=== PATIENT | female | born 1965 | race Caucasian/White ===

== ENCOUNTER 2018-08-12 09:04 | Inpatient (IN) | END 2018-08-13 13:45 | disposition home or self-care (01) | DRG 247 ==

== ENCOUNTER 2018-08-13 20:41 | Inpatient (IN) | END 2018-08-14 17:00 | disposition home or self-care (01) | DRG 313 ==

== ENCOUNTER 2018-08-16 20:30 | Observation (INO) | END 2018-08-17 15:45 | disposition home or self-care (01) ==

== ENCOUNTER 2018-12-23 19:08 | Emergency (ER) | payer MEDICAID, OTHER ==
[~2018-12-23] VITALS: Ht 160 cm; Wt 84.0 kg
[~2018-12-23 19:08] MED LIST: ACET500T98 PO; AMLO5TAB4 PO; ASPI-903 PO; ATOR40TA68 PO; LOSA25TA2 PO; RANI75TA13 PO; TICA90TA PO
[2018-12-23 19:14] VITALS: Ht 160 cm; Wt 84.0 kg
--- NOTE | 2018-12-23 19:37 | ERD ---
ER Documentation Chief Complaint Chief Complaint left side cp off & on x3 days. worse today. +SOB hx stent 3 mo ago. HPI 53-year-old woman complaining of left-sided chest pain intermittently times 3 days, she states the pain is similar to multiple previous episodes in the past and occurs for most of the day without any obvious precipitating or alleviating factors. She has intermittent shortness of breath and palpitations as well but denies S OB in the ER. Patient denies cough, no fevers or chills, no calf or leg swelling. She had stent placed 3 months ago. ROS All systems reviewed and are negative except as per history of present illness. Medications Home Meds Active Scripts Diclofenac Sodium* (Voltaren* Gel) 1% -100 Gm Gel, 2 GM TOP TID PRN for PAIN, #1 TUB Prov:KEREN ALARCON MD 12/23/18 Reported Medications Losartan Potassium* (Cozaar*) 25 Mg Tablet, 25 MG PO DAILY, #30 TAB 08/13/18 Aspirin* (Aspirin* Chew) 81 Mg Tab.chew, 81 MG PO DAILY, TAB.CHEW 08/13/18 Ranitidine Hcl* (Zantac*) 75 Mg Tablet, 75 MG PO BID, TAB 08/13/18 Atorvastatin* (Atorvastatin*) 40 Mg Tablet, 40 MG PO QHS, #30 TAB 08/13/18 Ticagrelor* (Brilinta*) 90 Mg Tablet, 90 MG PO Q12, TAB 08/13/18 Acetaminophen (Tylenol) 500 Mg Tab, 500 MG PO PRN for PAIN, TAB 08/10/18 Amlodipine Besylate* (Norvasc*) 5 Mg Tablet, 5 MG PO DAILY, TAB 08/09/18 Allergies Allergies: Coded Allergies: No Known Allergies (Verified Allergy, Unknown, 08/16/18) PMhx/Soc CAD history of RCA lesion status post stenting, anemia, hypertension, osteoarthritis, anxiety, obstructive sleep apnea, GERD History of Surgery: Yes Anesthesia Reaction: No Hx Neurological Disorder: No Hx Respiratory Disorders: No Hx Cardiac Disorders: Yes (stent placed) Hx Psychiatric Problems: No Hx Miscellaneous Medical Probl: No Hx Alcohol Use: No Hx Substance Use: No Hx Tobacco Use: No FmHx Family History: No diabetes Physical Exam Vitals Vital Signs Date Temp Pulse Resp B/P (MAP) Pulse Ox O2 O2 Flow FiO2 Time Delivery Rate 12/23/18 72 16 133/82 98 Room Air 21:50 (99) 12/23/18 98.4 65 20 153/84 97 19:35 (107) 12/23/18 98.4 77 20 174/78 97 19:14 (110) Physical Exam Const: No acute distress, appears comfortable, afebrile Head: Atraumatic Eyes: Normal Conjunctiva ENT: Normal External Ears, Nose and Mouth. Neck: Full range of motion. No meningismus. Resp: Clear to auscultation bilaterally Cardio: Regular rate and rhythm, no murmurs Abd: Soft, non tender, non distended. Normal bowel sounds Skin: No petechiae or rashes Back: No midline or flank tenderness Ext: No cyanosis, or edema Neur: Awake and alert Psych: Normal Mood and Affect Result Diagram: 12/23/18200612/23/182005 Results 24 hrs Laboratory Tests Test 12/23/18 20:06 12/23/18 20:07 Sodium Level 144 mmol/L Potassium Level 3.8 mmol/L Chloride Level 108 mmol/L Carbon Dioxide Level 24 mmol/L Anion Gap 12 Blood Urea Nitrogen 14 mg/dl Creatinine 0.63 mg/dl Est Glomerular Filtrat Rate mL/min > 60 mL/min Glucose Level 98 mg/dl Calcium Level 9.7 mg/dl Total Bilirubin 0.2 mg/dl Direct Bilirubin 0.00 mg/dl Indirect Bilirubin 0.2 mg/dl Aspartate Amino Transf (AST/SGOT) 56 IU/L Alanine Aminotransferase (ALT/SGPT) 98 IU/L Alkaline Phosphatase 72 IU/L Troponin I < 0.012 ng/ml Total Protein 8.0 g/dl Albumin 4.6 g/dl Globulin 3.40 g/dl Albumin/Globulin Ratio 1.35 Lipase 134 U/L White Blood Count 5.2 10^3/ul Red Blood Count 3.95 10^6/ul Hemoglobin 11.9 g/dl Hematocrit 36.1 % Mean Corpuscular Volume 91.4 fl Mean Corpuscular Hemoglobin 30.1 pg Mean Corpuscular Hemoglobin Concent 33.0 g/dl Red Cell Distribution Width 13.2 % Platelet Count 244 10^3/UL Mean Platelet Volume 9.4 fl Immature Granulocytes % 0.200 % Neutrophils % 54.3 % Lymphocytes % 33.8 % Monocytes % 9.9 % Eosinophils % 1.2 % Basophils % 0.6 % Nucleated Red Blood Cells % 0.0 /100WBC Immature Granulocytes # 0.010 10^3/ul Neutrophils # 2.8 10^3/ul Lymphocytes # 1.8 10^3/ul Monocytes # 0.5 10^3/ul Eosinophils # 0.1 10^3/ul Basophils # 0.0 10^3/ul Nucleated Red Blood Cells # 0.0 10^3/ul Current Medications Medications Dose Sig/Michel Start Time Status Last (Trade) Ordered Route PRN Stop Time Admin Dose Reason Admin Sodium 1,000 ml @ Q1H STAT 12/23/18 DC 12/23/18 Chloride 1,000 mls/hr IV 19:39 12/23/18 20:25 20:38 Ketorolac 15 mg ONCE STAT 12/23/18 DC 12/23/18 Tromethamine IV 19:39 12/23/18 20:25 (Toradol) 19:41 Alprazolam 0.5 mg ONCE ONCE 12/23/18 DC 12/23/18 (Xanax) PO 20:00 12/23/18 20:25 20:01 Procedures/MDM IV line was established patient was placed on campus monitor rhythm strip revealed a sinus rhythm at about 70 bpm with upright P and T waves. Patient was afebrile EKG performed, read by me revealed a normal sinus rhythm at 66 bpm, normal axis, narrow QRS complex, no concerning ST elevations or depressions noted. Chest X-ray 1V Interpreted by me: Soft Tissue: No acute abnormalities Bones: No acute abnormalities Mediastinum/Cardiac Silhouette/Lungs: No acute abnormalities I administered Toradol 15 mg IV x1 and alprazolam 0.5 mg p.o. CBC and electrolytes were normal, liver function tests were normal, troponin was negative. Differential diagnoses considered, included but not limited to acute coronary syndrome, pulmonary embolism, aortic dissection, abdominal aortic aneurysm, sepsis, stroke, meningitis, encephalitis, pneumonia, appendicitis, cholecystitis, bowel obstruction, pyelonephritis, nephrolithiasis, cystitis, as well as metabolic, hematologic, and electrolyte abnormalities. As well as abscess, cellulitis, fractures, and dislocations. Patient feels much better at this time, and vital signs are normal, symptoms have improved. I did give strict instructions to return to the ED if symptoms continue or worsen, patient will otherwise follow-up with primary care physician. Patient understood instructions and agreed to plan. Disclaimer: Inadvertent spelling and grammatical errors are likely due to EHR/dictation software use and do not reflect on the overall quality of patient care. Also, please note that the electronic time recorded on this note does not necessarily reflect the actual time of the patient encounter. Departure Diagnosis: Primary Impression: Chest pain Chest pain type: unspecified Qualified Codes: R07.9 - Chest pain, unspecified Condition: KEREN Leach MD Dec 23, 2018 19:37
[2018-12-23] MEDS ORDERED: KETOROLAC 15 MG INJ IV STA (19:39)
[2018-12-23] MEDS ORDERED: SOD CHLORIDE 0.9% 1,000 ML IV STA (19:39)
[2018-12-23] MEDS ORDERED: ALPRAZOLAM 0.25 MG TAB PO ONE (20:00)
[2018-12-23] MEDS ORDERED: DICL100G37 TOP (21:24)
[2018-12-23 21:50] VITALS: BP 133/82; PULSE 72; RESP 16
== END 2018-12-23 21:51 | disposition home or self-care (01) ==
LOC: E/R 19:08
DX: R07.9 Chest pain, unspecified (principal); I25.10 Atherosclerotic heart disease of native coronary artery without angina pectoris; I10 Essential (primary) hypertension; Z79.82 Long term (current) use of aspirin; Z98.61 Coronary angioplasty status
CPT/HCPCS: 36415; 71045; 80053; 83690; 84484; 85025; 93005; 96374; J1885; J7030; Z7502; Z7610

== ENCOUNTER 2019-02-04 20:29 | Inpatient (IN) | payer OTHER ==
[~2019-02-04] VITALS: Ht 160 cm; Wt 86.1 kg
[~2019-02-04 20:29] MED LIST changes: +DICL100G37 TOP
[2019-02-04] MEDS ORDERED: NITROGLYCERIN 2% 1 GM OINT PKT TD STA (21:46)
[2019-02-04] MEDS ORDERED: ONDANSETRON 4 MG INJ IV STA (21:46)
[2019-02-04] MEDS ORDERED: morphine 4 MG/ML VIAL IV STA (21:46)
--- NOTE | 2019-02-04 22:12 | ERD ---
ER Documentation Chief Complaint Chief Complaint on and off chest pain x 1 day, worse x 1 hour HPI 53-year-old female history of coronary disease with a stent to the RCA in August 2018 who presents to the emergency room with chest pain. The patient is having intermittent chest pain since the stent. She describes exertional left-sided chest discomfort that is mild to moderate at this time. The patient took aspirin and nitroglycerin prior to arrival with mildly improved symptoms. Pain is 2 out of 10 currently. Patient denies any fevers chills or cough, no pleuritic pain, no significant anxiety. ROS All systems reviewed and are negative except as per history of present illness. Medications Home Meds Active Scripts Diclofenac Sodium* (Voltaren* Gel) 1% -100 Gm Gel, 2 GM TOP TID PRN for PAIN, #1 TUB Prov:KEREN ALARCON MD 12/23/18 Reported Medications Losartan Potassium* (Cozaar*) 25 Mg Tablet, 25 MG PO DAILY, #30 TAB 08/13/18 Aspirin* (Aspirin* Chew) 81 Mg Tab.chew, 81 MG PO DAILY, TAB.CHEW 08/13/18 Ranitidine Hcl* (Zantac*) 75 Mg Tablet, 75 MG PO BID, TAB 08/13/18 Atorvastatin* (Atorvastatin*) 40 Mg Tablet, 40 MG PO QHS, #30 TAB 08/13/18 Ticagrelor* (Brilinta*) 90 Mg Tablet, 90 MG PO Q12, TAB 08/13/18 Acetaminophen (Tylenol) 500 Mg Tab, 500 MG PO PRN for PAIN, TAB 08/10/18 Amlodipine Besylate* (Norvasc*) 5 Mg Tablet, 5 MG PO DAILY, TAB 08/09/18 Allergies Allergies: Coded Allergies: No Known Allergies (Verified Allergy, Unknown, 08/16/18) PMhx/Soc History of Surgery: Yes Anesthesia Reaction: No Hx Neurological Disorder: No Hx Respiratory Disorders: No Hx Cardiac Disorders: Yes (stent placed) Hx Psychiatric Problems: No Hx Miscellaneous Medical Probl: No Hx Alcohol Use: No Hx Substance Use: No Hx Tobacco Use: No Smoking Status: Never smoker FmHx Family History: No diabetes Physical Exam Vitals Vital Signs Date Temp Pulse Resp B/P (MAP) Pulse Ox O2 O2 Flow FiO2 Time Delivery Rate 02/04/19 60 12 145/77 98 Room Air 22:30 (99) 02/04/19 60 12 160/86 100 Room Air 22:00 (110) 02/04/19 98.5 81 18 187/85 98 20:41 (119) Physical Exam General: Well developed, well nourished, no acute distress Head: Normocephalic, atraumatic. Eyes: Pupils equally reactive, EOM intact ENT: Moist mucous membranes Neck: Supple, no lymphadenopathy Respiratory: Lungs clear bilaterally, no distress Cardiovascular: RRR, no murmurs, rubs, or gallops Abdominal: Soft, non-tender, non-distended, no peritoneal signs : Deferred MSK: No edema, no unilateral swelling, 5/5 strength Neurologic: Alert and oriented, moving all extremities, normal speech, no focal weakness, no cerebellar signs Skin: No rash Psych: Normal mood Result Diagram: 02/04/19220002/04/192200 Results 24 hrs Laboratory Tests Test 02/04/19 22:01 White Blood Count 4.9 10^3/ul Red Blood Count 3.93 10^6/ul Hemoglobin 11.6 g/dl Hematocrit 35.7 % Mean Corpuscular Volume 90.8 fl Mean Corpuscular Hemoglobin 29.5 pg Mean Corpuscular Hemoglobin Concent 32.5 g/dl Red Cell Distribution Width 13.1 % Platelet Count 289 10^3/UL Mean Platelet Volume 8.9 fl Immature Granulocytes % 0.200 % Neutrophils % 49.2 % Lymphocytes % 39.7 % Monocytes % 8.7 % Eosinophils % 1.8 % Basophils % 0.4 % Nucleated Red Blood Cells % 0.0 /100WBC Immature Granulocytes # 0.010 10^3/ul Neutrophils # 2.4 10^3/ul Lymphocytes # 2.0 10^3/ul Monocytes # 0.4 10^3/ul Eosinophils # 0.1 10^3/ul Basophils # 0.0 10^3/ul Nucleated Red Blood Cells # 0.0 10^3/ul Sodium Level 142 mmol/L Potassium Level 3.7 mmol/L Chloride Level 104 mmol/L Carbon Dioxide Level 25 mmol/L Anion Gap 13 Blood Urea Nitrogen 13 mg/dl Creatinine 0.64 mg/dl Est Glomerular Filtrat Rate mL/min > 60 mL/min Glucose Level 103 mg/dl Calcium Level 10.1 mg/dl Troponin I < 0.012 ng/ml Current Medications Medications Dose Sig/Michel Start Time Status Last (Trade) Ordered Route PRN Stop Time Admin Dose Reason Admin 1 inch ONCE STAT 02/04/19 DC 02/04/19 Nitroglycerin TD 21:46 22:16 02/04/19 21:47 (Nitroglyceri n 2% Oint) Morphine 4 mg ONCE STAT 02/04/19 DC 02/04/19 Sulfate IV 21:46 22:15 (morphine) 02/04/19 21:47 Ondansetron 4 mg ONCE STAT 02/04/19 DC 02/04/19 HCl (Zofran IV 21:46 22:15 Inj) 02/04/19 21:47 Procedures/MDM EKG, MONITORS, & DIAGNOSTIC IMAGING: EKG: I reviewed and interpreted a 12-lead EKG. Rhythm: Normal sinus rhythm ST Changes: No contiguous ST segment elevations T waves: No contiguous T wave inversions Impression: [No evidence of acute cardiac ischemia] Repeat EKG: EKG: I reviewed and interpreted a 12-lead EKG. Rhythm: Normal sinus rhythm ST Changes: No contiguous ST segment elevations T waves: No contiguous T wave inversions Impression: [No evidence of acute cardiac ischemia] Chest x-ray: I reviewed and interpreted a 1 view of the chest Mediastinum: No enlargement Cardiac silhouette: No cardiomegaly Airspace: Clear lung groves bilaterally without evidence of pneumothorax Bones: No evidence of fracture PROCEDURES: [None] LAB INTERPRETATION: * Negative troponin MEDICAL DECISION MAKING: The patient's history, physical exam and clinical presentation is concerning for possible cardiogenic etiology and acute coronary syndrome. Based on the patient's clinical exam and history and risk factors, I have a much lower clinical concern for pulmonary embolism, acute aortic dissection, pneumothorax, pneumonia, cardiac tamponade HEART Score: Greater than 4 MACE Rate: 16.6% Shared Decision Making: We had a conversation regarding risk stratification, MACE rate, and the risks, benefits, alternatives of disposition planning op tions. Disposition planning: Admit ER COURSE: * Nitro morphine provided * Dr. Pinon notified * Troponin negative. Patient stable CONSULTATION: Cardiology as above DISPOSITION PLAN: Telemetry admission for management of chest pain to rule out acute coronary syndrome, serial enzymes, risk stratification and consideration of provocative testing CONSULTATION: Accepting care team and consultations: I discussed the current laboratory data, diagnostic imaging and emergency care provided. Admitting team: Dr. Mcclain Admitting team indication: Insurance directed Departure Diagnosis: Primary Impression: Chest pain Chest pain type: unspecified Qualified Codes: R07.9 - Chest pain, unspecified Condition: Stable PÉREZ GAYLE MD Feb 04, 2019 22:12
[2019-02-05] VITALS (11 sets, daily range): BP systolic 106–144; BP diastolic 6–76; PULSE 53–73; RESP 18–20; Ht 160 cm; Wt 86.1 kg
[2019-02-05] MEDS ORDERED: ONDANSETRON 4 MG TAB PO PRN (00:30)
[2019-02-05] MEDS ORDERED: ONDANSETRON 4 MG INJ IV PRN (00:30)
[2019-02-05] MEDS ORDERED: morphine 2 MG INJ IV PRN (00:30)
[2019-02-05] MEDS ORDERED: BISACODYL (EC) 5 MG TAB PO PRN (00:30)
[2019-02-05] MEDS ORDERED: MAGNESIUM HYDROXIDE 30ML CUP PO PRN (00:30)
[2019-02-05] MEDS ORDERED: NACL 0.9% 3 ML SYG IV SCH (00:30)
[2019-02-05] MEDS ORDERED: ACETAMINOPHEN 325 MG TAB PO PRN ×2 (00:30)
[2019-02-05] MEDS ORDERED: DOCUSATE SODIUM 100 MG CAP PO PRN (00:30)
[2019-02-05] MEDS: FAMOTIDINE 20 MG TAB PO SCH ×2 (08:33→20:50)
[2019-02-05] MEDS: TICAGRELOR 90 MG TABLET PO SCH ×2 (08:37→21:08)
--- NOTE | 2019-02-05 08:50 | HP ---
Date/Time of Note Date/Time of Note DATE: 02/05/19 TIME: 08:39 Assessment/Plan VTE Prophylaxis SCD applied (from Nsg): Yes Pharmacological prophylaxis: LMWH Lines/Catheters IV Catheter Type (from Nrsg): Saline Lock Urinary Cath still in place: No Assessment/Plan Assessment/Plan [facility] 53yo woman with known coronary disease who has had chronic chest pain and left arm pain for the past six months, with occasional dyspnea. She had high blood pressure yesterday, which made her anxious. No clear new ischemia-type symptoms. On exam, she had moderate costochondritis. Palpation of the chest wall reproduced her pain. She also has mild restriction of motion with pain in the left arm that may be secondary to mild arthritis or rotator cuff tendonitis. EKG showed normal sinus rhythm rate of 70, with some T-wave flattening but no acute ischemic changes. Troponins negative x 2. I don't believe she has active cardiac ischemia. Blood pressure now better-controlled. Normal-range D-dimer, with normal ESR and no calf swelling or tenderness, so pulmonary embolism is very unlikely. * Will obtain Lexiscan, in advance of planned outpatient stress testing next month * Her police inspector is aware * Naproxen for chest pain; discontinue morphine * Lovenox for DVT prophylaxis; famotidine for GI protection * Disposition: home once stress test results are back, if reassuring; or further intervention anticipated for an abnormal result Wilfredo Johns MD PhD [phone] Result Diagram: 02/04/19 2201 02/05/19 0413 Results 24hrs Laboratory Tests Test 02/04/19 22:01 02/05/19 04:13 White Blood Count 4.9 Red Blood Count 3.93 L Hemoglobin 11.6 L Hematocrit 35.7 L Mean Corpuscular Volume 90.8 Mean Corpuscular Hemoglobin 29.5 Mean Corpuscular Hemoglobin Concent 32.5 Red Cell Distribution Width 13.1 Platelet Count 289 Mean Platelet Volume 8.9 Immature Granulocytes % 0.200 Neutrophils % 49.2 Lymphocytes % 39.7 Monocytes % 8.7 Eosinophils % 1.8 Basophils % 0.4 Nucleated Red Blood Cells % 0.0 Immature Granulocytes # 0.010 Neutrophils # 2.4 Lymphocytes # 2.0 Monocytes # 0.4 Eosinophils # 0.1 Basophils # 0.0 Nucleated Red Blood Cells # 0.0 Sodium Level 142 143 Potassium Level 3.7 3.7 Chloride Level 104 105 Carbon Dioxide Level 25 26 Anion Gap 13 12 Blood Urea Nitrogen 13 14 Creatinine 0.64 0.71 Est Glomerular Filtrat Rate mL/min > 60 > 60 Glucose Level 103 98 Calcium Level 10.1 9.5 Troponin I < 0.012 < 0.012 Erythrocyte Sedimentation Rate 30 D-Dimer 324.89 # D-Dimer Comment Hemoglobin A1c 5.8 Creatine Kinase 109 Creatine Kinase Index 0.6 Creatinine Kinase MB (Mass) 0.68 Triglycerides Level 151 H Cholesterol Level 222 H LDL Cholesterol, Calculated 151 HDL Cholesterol 41 Cholesterol/HDL Ratio 5.4 Thyroid Stimulating Hormone (TSH) 7.350 H HPI/ROS Admit Date/Time Admit Date/Time Feb 05, 2019 at 00:26 Hx of Present Illness Ms. Reed is a 53yo woman with a history of coronary artery disease who has not felt well for the past six months since undergoing cardiac catheterization. She said she has chronic chest pain with dyspnea and radiation into the left arm on-and-off most days. Yesterday she said her blood pressure was much higher than usual, and she was very anxious. She felt unusually dizzy, in addition to her normal chest pain and dyspnea. She is from [facility] originally, and lives with her -- who is overweight with hypertension himself. They have two children and several grandchildren. ROS She denied headache, visual problems, cough or flu symptoms, nausea, change in bowel habitus, dysuria or urethritis symptoms. PMH/Family/Social Past Medical History Medications Current Medications Amlodipine Besylate (Norvasc) 5 mg DAILY PO Last administered on 02/05/19at 08:34; Admin Dose 5 MG; Start 02/05/19 at 09:00 Aspirin (Aspirin) 81 mg DAILY PO Last administered on 02/05/19at 08:34; Admin Dose 81 MG; Start 02/05/19 at 09:00 Atorvastatin Calcium (Lipitor) 40 mg QHS PO ; Start 02/05/19 at 21:00 Losartan Potassium (Cozaar) 25 mg DAILY PO Last administered on 02/05/19at 08: 34; Admin Dose 25 MG; Start 02/05/19 at 09:00 Ticagrelor (Brilinta) 90 mg Q12 PO Last administered on 02/05/19at 08:37; Admin Dose 90 MG; Start 02/05/19 at 09:00 IV Flush (NS 3 ml) 3 ml PER PROTOCOL IV ; Start 02/05/19 at 00:30 Ondansetron HCl (Zofran Tab) 4 mg Q6H PRN PO NAUSEA/VOMITING; Start 02/05/19 at 00:30 Acetaminophen (Tylenol Tab) 650 mg Q6H PRN PO .PAIN 1-3 OR TEMP; Start 02/05/19 at 00:30 Morphine Sulfate (morphine) 2 mg Q4H PRN IV .PAIN 7-10; Start 02/05/19 at 00:30 Docusate Sodium (Colace) 100 mg Q12H PRN PO .CONSTIPATION; Start 02/05/19 at 00:30 Magnesium Hydroxide (Milk Of Mag) 30 ml DAILY PRN PO .CONSTIPATION; Start 02/05/19 at 00:30 Bisacodyl (Dulcolax) 5 mg DAILY PRN PO .CONSTIPATION; Start 02/05/19 at 00:30 Famotidine (Pepcid) 20 mg Q12 PO Last administered on 02/05/19at 08:33; Admin Dose 20 MG; Start 02/05/19 at 09:00 Enoxaparin Sodium (Lovenox) 40 mg DAILY SC ; Start 02/05/19 at 09:00 Ondansetron HCl (Zofran Inj) 4 mg ER BRIDGE PRN IV NAUSEA/VOMITING; Start 02/05/19 at 00:30; Stop 02/06/19 at 00:29 Acetaminophen (Tylenol Tab) 650 mg ER BRIDGE PRN PO .MILD PAIN 1-3 OR TEMP; Start 02/05/19 at 00:30; Stop 02/06/19 at 00:29 Coded Allergies: No Known Allergies (Verified Allergy, Unknown, 08/16/18) Past Surgical History Past Surgical Hx: appendectomy, other Family History Significant Family History: hypertension, other Social History Smoking Status: Never smoker Exam/Review of Systems Vital Signs Vitals Vital Signs Date Temp Pulse Resp B/P (MAP) Pulse Ox O2 O2 Flow FiO2 Time Delivery Rate 02/05/19 58 08:01 02/05/19 98.4 18 135/63 98 07:54 (87) 02/05/19 Nasal 2.0 02:00 Cannula Intake and Output 02/04/19 02/04/19 02/05/19 1414:59 22:59 06:59 IntakeIntake Total 50 ml BalanceBalance 50 ml Exam Exam GEN; Mildly anxious-appearing, but breathing comfortably on room air HEENT: Pupils ERRL, EOMI, no conjunctivitis or scleral icterus CVS: Regular rhythm, normal rate, no murmur, good peripheral perfusion Chest: Moderate diffuse chest wall tenderness that she said reproduced her pain. No squeeze tenderness Abd: Soft, non-tender, no rebound or guarding, no HSM MSk: Mild discomfort with full rotation and elevation of the left shoulder, but not the right. Previous knee replacement surgery on the right. Moderate crepitus of the left knee. Neuro: Alert, oriented, cranial nerves intact, motor 5/5 bilat. Intact speech and memory. Normal affect. Skin: No rash HUGO JOHNS M.D. Feb 05, 2019 08:50
[2019-02-05] MEDS ORDERED: ASPIRIN 81 MG TAB PO SCH (09:00)
[2019-02-05] MEDS ORDERED: LOSARTAN 25 MG TAB PO SCH (09:00)
[2019-02-05] MEDS ORDERED: ENOXAPARIN 40 MG/0.4 ML SYG SC SCH (09:00)
[2019-02-05] MEDS ORDERED: AMLODIPINE 5 MG TAB PO SCH (09:00)
--- NOTE | 2019-02-05 15:27 | CONS ---
Assessment/Plan Assessment/Plan Hospital Course (Demo Recall) Assessment: Noncardiac chest pain - symptoms suggest possible radiculopathy and tenderness to palpation on exam suggests musculoskeletal as another possible etiology Coronary artery disease - status post PCI to obtuse marginal 08/12/2018 without residual obstructive disease Hypertension Dyslipidemia Recommendations: -defer repeating additional cardiac tests at this time -continue aspirin 81mg daily and ticagrelor 90mg BID -continue atorvastatin 40mg daily -continue amlodipine 5mg daily and losartan 25mg daily, adjust as needed Consultation Date/Type/Reason Admit Date/Time Feb 05, 2019 at 00:26 Type of Consult Cardiology Reason for Consultation chest pain Date/Time of Note DATE: 02/05/19 TIME: 15:16 Hx of Present Illness The patient is a 53 year-old female who presented with chest pain with associated shortness of breath. She describes a sharp shooting pain in her retrosternal area with radiation to the back and left arm. Her symptoms are unrelated to exertion and can last for only several seconds or up to several hours. She has had these symptoms chronically and they are thought to be noncardiac in etiology. She was initially evaluated 08/11/2018 with a Lexiscan SPECT, which was negative for ischemia. Given persistent symptoms, she underwent coronary angiography and percutaneous coronary intervention to obtuse marginal on 08/12/2018, without residual obstructive disease. She was discharged on 08/13/2018, but returned to the hospital later that day with recurrent chest pain. She had repeat evaluation with coronary CTA 08/17/2018, which did not show any obstructive disease. She has continued to have symptoms since then. Currently, EKG shows sinus rhythm with nonspecific T wave flattening, which is unchanged from prior. Serial troponins have been negative x 3. Initial blood pressure was elevated to 187/85, but subsequently has been under reasonable control. 14 point review of systems negative other than per HPI. Past Medical History Coronary artery disease Hypertension Dyslipidemia Home Meds Active Scripts Diclofenac Sodium* (Voltaren* Gel) 1% -100 Gm Gel, 2 GM TOP TID PRN for PAIN, #1 TUB Prov:KEREN ALARCON MD 12/23/18 Reported Medications Losartan Potassium* (Cozaar*) 25 Mg Tablet, 25 MG PO DAILY, #30 TAB 08/13/18 Aspirin* (Aspirin* Chew) 81 Mg Tab.chew, 81 MG PO DAILY, TAB.CHEW 08/13/18 Ranitidine Hcl* (Zantac*) 75 Mg Tablet, 75 MG PO BID, TAB 08/13/18 Atorvastatin* (Atorvastatin*) 40 Mg Tablet, 40 MG PO QHS, #30 TAB 08/13/18 Ticagrelor* (Brilinta*) 90 Mg Tablet, 90 MG PO Q12, TAB 08/13/18 Acetaminophen (Tylenol) 500 Mg Tab, 500 MG PO PRN for PAIN, TAB 08/10/18 Amlodipine Besylate* (Norvasc*) 5 Mg Tablet, 5 MG PO DAILY, TAB 08/09/18 Medications Current Medications Amlodipine Besylate (Norvasc) 5 mg DAILY PO Last administered on 02/05/19at 08:34; Admin Dose 5 MG; Start 02/05/19 at 09:00 Aspirin (Aspirin) 81 mg DAILY PO Last administered on 02/05/19at 08:34; Admin Dose 81 MG; Start 02/05/19 at 09:00 Atorvastatin Calcium (Lipitor) 40 mg QHS PO ; Start 02/05/19 at 21:00 Losartan Potassium (Cozaar) 25 mg DAILY PO Last administered on 02/05/19at 08:34; Admin Dose 25 MG; Start 02/05/19 at 09:00 Ticagrelor (Brilinta) 90 mg Q12 PO Last administered on 02/05/19at 08:37; Admin Dose 90 MG; Start 02/05/19 at 09:00 IV Flush (NS 3 ml) 3 ml PER PROTOCOL IV ; Start 02/05/19 at 00:30 Ondansetron HCl (Zofran Tab) 4 mg Q6H PRN PO NAUSEA/VOMITING; Start 02/05/19 at 00:30 Acetaminophen (Tylenol Tab) 650 mg Q6H PRN PO .PAIN 1-3 OR TEMP; Start 02/05/19 at 00:30 Morphine Sulfate (morphine) 2 mg Q4H PRN IV .PAIN 7-10 Last administered on 02/05/19at 11:14; Admin Dose 2 MG; Start 02/05/19 at 00:30 Docusate Sodium (Colace) 100 mg Q12H PRN PO .CONSTIPATION; Start 02/05/19 at 00:30 Magnesium Hydroxide (Milk Of Mag) 30 ml DAILY PRN PO .CONSTIPATION; Start 02/05/19 at 00:30 Bisacodyl (Dulcolax) 5 mg DAILY PRN PO .CONSTIPATION; Start 02/05/19 at 00:30 Famotidine (Pepcid) 20 mg Q12 PO Last administered on 02/05/19at 08:33; Admin Dose 20 MG; Start 02/05/19 at 09:00 Enoxaparin Sodium (Lovenox) 40 mg DAILY SC ; Start 02/05/19 at 09:00 Ondansetron HCl (Zofran Inj) 4 mg ER BRIDGE PRN IV NAUSEA/VOMITING; Start 02/05/19 at 00:30; Stop 02/06/19 at 00:29 Acetaminophen (Tylenol Tab) 650 mg ER BRIDGE PRN PO .MILD PAIN 1-3 OR TEMP; Start 02/05/19 at 00:30; Stop 02/06/19 at 00:29 Allergies: Coded Allergies: No Known Allergies (Verified Allergy, Unknown, 08/16/18) Family History Significant Family History: no pertinent family hx Social History Smoking Status: Never smoker Exam/Review of Systems Vital Signs Vitals Vital Signs Date Temp Pulse Resp B/P (MAP) Pulse Ox O2 O2 Flow FiO2 Time Delivery Rate 02/05/19 53 12:01 02/05/19 98.2 19 136/67 98 11:07 (90) 02/05/19 Nasal 2.0 02:00 Cannula Intake and Output 02/04/19 02/04/19 02/05/19 1515:00 23:00 07:00 IntakeIntake Total 50 ml BalanceBalance 50 ml Exam Constitutional: alert, well developed Psych: no complaints, nl mood/affect Head: normocephalic, atraumatic Eyes: nl conjunctiva, nl lids ENMT: nl external ears & nose, nl lips & teeth, nl nasal mucosa & septum Neck: supple, non-tender; No jvd Respiratory: clear to auscultation Cardiovascular: regular rate and rhythm Gastrointestinal: soft, non-tender Musculoskeletal: nl extremities to inspection Extremities: No cyanosis, No clubbing, No edema Neurological: nl mental status, nl speech Labs Result Diagram: 02/04/191 02/05/19 4113 Results 24hrs Laboratory Tests Test 02/04/19 22:01 02/05/19 04:13 02/05/19 10:59 White Blood Count 4.9 Red Blood Count 3.93 L Hemoglobin 11.6 L Hematocrit 35.7 L Mean Corpuscular Volume 90.8 Mean Corpuscular Hemoglobin 29.5 Mean Corpuscular Hemoglobin Concent 32.5 Red Cell Distribution Width 13.1 Platelet Count 289 Mean Platelet Volume 8.9 Immature Granulocytes % 0.200 Neutrophils % 49.2 Lymphocytes % 39.7 Monocytes % 8.7 Eosinophils % 1.8 Basophils % 0.4 Nucleated Red Blood Cells % 0.0 Immature Granulocytes # 0.010 Neutrophils # 2.4 Lymphocytes # 2.0 Monocytes # 0.4 Eosinophils # 0.1 Basophils # 0.0 Nucleated Red Blood Cells # 0.0 Sodium Level 142 143 Potassium Level 3.7 3.7 Chloride Level 104 105 Carbon Dioxide Level 25 26 Anion Gap 13 12 Blood Urea Nitrogen 13 14 Creatinine 0.64 0.71 Est Glomerular Filtrat Rate mL/min > 60 > 60 Glucose Level 103 98 Calcium Level 10.1 9.5 Troponin I < 0.012 < 0.012 < 0.012 Erythrocyte Sedimentation Rate 30 D-Dimer 324.89 # D-Dimer Comment Hemoglobin A1c 5.8 Creatine Kinase 109 88 Creatine Kinase Index 0.6 0.6 Creatinine Kinase MB (Mass) 0.68 0.50 Triglycerides Level 151 H Cholesterol Level 222 H LDL Cholesterol, Calculated 151 HDL Cholesterol 41 Cholesterol/HDL Ratio 5.4 Thyroid Stimulating Hormone (TSH) 7.350 H Medications Medications Current Medications Amlodipine Besylate (Norvasc) 5 mg DAILY PO Last administered on 02/05/19at 08:34; Admin Dose 5 MG; Start 02/05/19 at 09:00 Aspirin (Aspirin) 81 mg DAILY PO Last administered on 02/05/19at 08:34; Admin Dose 81 MG; Start 02/05/19 at 09:00 Atorvastatin Calcium (Lipitor) 40 mg QHS PO ; Start 02/05/19 at 21:00 Losartan Potassium (Cozaar) 25 mg DAILY PO Last administered on 02/05/19at 08:3 4; Admin Dose 25 MG; Start 02/05/19 at 09:00 Ticagrelor (Brilinta) 90 mg Q12 PO Last administered on 02/05/19at 08:37; Admin Dose 90 MG; Start 02/05/19 at 09:00 IV Flush (NS 3 ml) 3 ml PER PROTOCOL IV ; Start 02/05/19 at 00:30 Ondansetron HCl (Zofran Tab) 4 mg Q6H PRN PO NAUSEA/VOMITING; Start 02/05/19 at 00:30 Acetaminophen (Tylenol Tab) 650 mg Q6H PRN PO .PAIN 1-3 OR TEMP; Start 02/05/19 at 00:30 Morphine Sulfate (morphine) 2 mg Q4H PRN IV .PAIN 7-10 Last administered on 02/05/19at 11:14; Admin Dose 2 MG; Start 02/05/19 at 00:30 Docusate Sodium (Colace) 100 mg Q12H PRN PO .CONSTIPATION; Start 02/05/19 at 00:30 Magnesium Hydroxide (Milk Of Mag) 30 ml DAILY PRN PO .CONSTIPATION; Start at 00:30 Bisacodyl (Dulcolax) 5 mg DAILY PRN PO .CONSTIPATION; Start 02/05/19 at 00:30 Famotidine (Pepcid) 20 mg Q12 PO Last administered on 02/05/19at 08:33; Admin Dose 20 MG; Start 02/05/19 at 09:00 Enoxaparin Sodium (Lovenox) 40 mg DAILY SC ; Start 02/05/19 at 09:00 Ondansetron HCl (Zofran Inj) 4 mg ER BRIDGE PRN IV NAUSEA/VOMITING; Start 02/05/19 at 00:30; Stop 02/06/19 at 00:29 Acetaminophen (Tylenol Tab) 650 mg ER BRIDGE PRN PO .MILD PAIN 1-3 OR TEMP; Start 02/05/19 at 00:30; Stop 02/06/19 at 00:29 JEANCARLOS MCLAUGHLIN MD Feb 05, 2019 15:27
[2019-02-05] MEDS ORDERED: ATORVASTATIN 40 MG TAB PO SCH (21:00)
--- NOTE | 2019-02-05 21:21 | PDOCDIS ---
Discharge Instructions DIAGNOSIS Discharge Diagnosis Costochondritis, hypertensive urgency CONDITION [id number] Patient Condition: [id number] Good HOME CARE INSTRUCTIONS: Del Diet Instructions: Carloz Low Fat /Cholesterol ACTIVITY: Del Activity Restrictions: Carloz Slowly Increase Activity FOLLOW UP/APPOINTMENTS Follow-up Plan Cardiology in the next week HUGO LOPES M.D. Feb 05, 2019 21:21
[2019-02-05] MEDS ORDERED: ACET500T98 PO (21:25)
--- NOTE | 2019-02-05 21:31 | DS ---
Date/Time of Note Date/Time of Note DATE: 02/05/19 TIME: : Discharge Summary Admission/Discharge Info Admit Date/Time Feb 05, 2019 at 00:26 Discharge Date/Time Feb 05, 2019 at 21:00 Discharge Diagnosis Costochondritis, hypertensive urgency Patient Condition: Good Consults Dr. Tripp Farah (Cardiology) Procedures Serial troponins, EKG Hx of Present Illness Ms. eRed is a 53yo woman with a history of coronary artery disease who has not felt well for the past six months since undergoing cardiac catheterization. She said she has chronic chest pain with dyspnea and radiation into the left arm on-and-off most days. Yesterday she said her blood pressure was much higher than usual, and she was very anxious. She felt unusually dizzy, in addition to her normal chest pain and dyspnea. She is from [facility], and lives with her -- who is overweight with hypertension himself. They have two children and several grandchildren. Hospital Course On exam, she had moderate costochondritis. Palpation of the chest wall reproduc ed her pain. She also has mild restriction of motion with pain in the left arm that may be secondary to mild arthritis or rotator cuff tendonitis. EKG showed normal sinus rhythm rate of 70, with some T-wave flattening but no acute ischemic changes. Troponins negative x 3. Our eyewear consultant, Dr. Tripp Farah, and I both felt that her history, exam, and diagnostic studies were not consistent with active cardiac ischemia. Her blood pressure was much better-controlled while in the hospital. She had a normal-range D-dimer, with normal ESR and no calf swelling or tenderness, so pulmonary embolism seemed very unlikely. Although she said she was scheduled for an outpatient stress test next month, Dr. Farah felt that an inpatient Lexiscan was not necessary. On exam she also had a previous right knee replacement, and severe crepitus of the left knee consistent with severe degenerative joint disease. Although NSAID pain medicines might help in the short-term, I expressed concern about them further boosting her blood pressure. 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 Wilfredo Johns MD PhD [phone] Home Meds Active Scripts Acetaminophen (Tylenol) 500 Mg Tab, 500 MG PO Q8H PRN for PAIN, #90 TAB Prov:HUGO JOHNS M.D. 02/05/19 Diclofenac Sodium* (Voltaren* Gel) 1% -100 Gm Gel, 2 GM TOP TID PRN for PAIN, #1 TUB Prov:KEREN ALARCON MD 12/23/18 Reported Medications Losartan Potassium* (Cozaar*) 25 Mg Tablet, 25 MG PO DAILY, #30 TAB 08/13/18 Aspirin* (Aspirin* Chew) 81 Mg Tab.chew, 81 MG PO DAILY, TAB.CHEW 08/13/18 Ranitidine Hcl* (Zantac*) 75 Mg Tablet, 75 MG PO BID, TAB 08/13/18 Atorvastatin* (Atorvastatin*) 40 Mg Tablet, 40 MG PO QHS, #30 TAB 08/13/18 Ticagrelor* (Brilinta*) 90 Mg Tablet, 90 MG PO Q12, TAB 08/13/18 Amlodipine Besylate* (Norvasc*) 5 Mg Tablet, 5 MG PO DAILY, TAB 08/09/18 Follow-up Plan Cardiology in the next week Primary Care Provider Duc Rodriguez MD Time spent on discharge: > 30 minutes Pending Labs Laboratory Tests Test 02/04/19 22:01 02/05/19 04:13 02/05/19 10:59 White Blood Count 4.9 10^3/ul (4.8-10.8) Red Blood Count 3.93 10^6/ul (4.20-5.40) Hemoglobin 11.6 g/dl (12.0-16.0) Hematocrit 35.7 % (37.0-47.0) Mean Corpuscular 90.8 Volume fl (82.0-101.0) Mean Corpuscular 29.5 pg (29.0-33.0) Hemoglobin Mean Corpuscular 32.5 Hemoglobin Concent g/dl (32.0-37.0) Red Cell 13.1 % (11.5-14.5) Distribution Width Platelet Count 289 10^3/UL (140-415) Mean Platelet 8.9 fl (7.4-10.4) Volume Immature 0.200 Granulocytes % % (0.001-0.429) Neutrophils % 49.2 % (39.0-77.0) Lymphocytes % 39.7 % (15.0-51.0) Monocytes % 8.7 % (0.0-11.0) Eosinophils % 1.8 % (0.0-7.0) Basophils % 0.4 % (0.0-2.0) Nucleated Red Blood 0.0 Cells % /100WBC (0.0-0.0) Immature 0.010 Granulocytes # 10^3/ul (0.0-0.031) Neutrophils # 2.4 10^3/ul (1.6-7.5) Lymphocytes # 2.0 10^3/ul (0.8-2.9) Monocytes # 0.4 10^3/ul (0.3-0.9) Eosinophils # 0.1 10^3/ul (0.0-0.5) Basophils # 0.0 10^3/ul (0.0-0.1) Nucleated Red Blood 0.0 Cells # 10^3/ul (0.0-0.0) Sodium Level 142 143 mmol/L (135-144) mmol/L (135-144) Potassium Level 3.7 3.7 mmol/L (3.5-5.1) mmol/L (3.5-5.1) Chloride Level 104 mmol/L (97-110) 105 mmol/L (97-110) Carbon Dioxide 25 mmol/L (21-31) 26 mmol/L (21-31) Level Anion Gap 13 (5-13) 12 (5-13) Blood Urea 13 mg/dl (7-20) 14 mg/dl (7-20) Nitrogen Creatinine 0.64 0.71 mg/dl (0.44-1.00) mg/dl (0.44-1.00) Est Glomerular > 60 mL/min (>60) > 60 mL/min (>60) Filtrat Rate mL/min Glucose Level 103 mg/dl (70-220) 98 mg/dl (70-220) Calcium Level 10.1 9.5 mg/dl (8.4-10.2) mg/dl (8.4-10.2) Troponin I < 0.012 < 0.012 < 0.012 ng/ml (0.000-0.120) ng/ml (0.000-0.120 ng/ml (0.000-0.120 ) ) Erythrocyte 30 mm/Hr (0-30) Sedimentation Rate D-Dimer 324.89 ng/ml (<460) D-Dimer Comment Hemoglobin A1c 5.8 % (0-5.9) Creatine Kinase 109 IU/L (23-200) 88 IU/L (23-200) Creatine Kinase 0.6 0.6 Index Creatinine Kinase 0.68 0.50 MB (Mass) ng/ml (0.0-2.4) ng/ml (0.0-2.4) Triglycerides 151 mg/dl (0-149) Level Cholesterol Level 222 mg/dl (100-200) LDL Cholesterol, 151 mg/dl Calculated HDL Cholesterol 41 mg/dl (37-92) Cholesterol/HDL 5.4 RATIO Ratio Thyroid Stimulating 7.350 Hormone (TSH) MIU/L (0.465-4.680 ) HUGO JOHNS M.D. Feb 05, 2019 21:31
== END 2019-02-05 22:30 | disposition home or self-care (01) | DRG 206 ==
LOC: E/R 20:29 → TEL 02-05 00:26
PROVIDERS: ADMIT Internal Medicine; ATTEND Internal Medicine
DX: M94.0 Chondrocostal junction syndrome [Tietze] (principal); I16.0 Hypertensive urgency; I25.10 Atherosclerotic heart disease of native coronary artery without angina pectoris; I10 Essential (primary) hypertension; E78.5 Hyperlipidemia, unspecified
CPT/HCPCS: 36415; 71045; 80048; 80061; 82550; 82553; 83036; 84443; 84484; 85025; 85378; 85651; 93005; 96374; 96375; J1650; J2270; J2405